=== PATIENT | male | born 1935 | race Caucasian/White ===

== ENCOUNTER 2016-11-20 15:51 | Observation (INO) | payer MEDICARE ==
[~2016-11-20] VITALS: Ht 185.4 cm; Wt 91.2 kg
[2016-11-20 15:56] VITALS: BP 169/75; PULSE 76; RESP 18; O2SAT 97
--- NOTE | 2016-11-20 16:59 | ED.REPORT ---
HPI-General Illness Date of Service Nov 20, 2016 ED Provider: Joanna Polanco MD An 81 year old male with a history of baseline left leg and left foot numbness and weakness presents to the ED via EMS complaining of sudden weakness in both legs at 1530 today when getting out from a car. No pain. Patient had acute numbness on bottom of right foot with associated weakness. Numbness had essentially resolved upon arrival in the ER and weakness lasted for 2 hours but has since diminished and he is now symptom free. He can walk, but it feels strange. He denies any weakness in any other parts of his body and denies any pain. It was the first time this morning that he did his regular walking exercise without let leg feeling heavy. 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 Nayan العلي Past Medical History Neuralgia on left side. 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 Baseline numbness in left foot and left leg, post PADMINI Seen 10/24/16 for dizziness Smoking History Never Smoker Social History Alcohol Use: "Social" Drug Use: Denies drug use Review of Systems Denies weakness in other parts of his body Full Review of Systems Musculoskeletal: Denies: Extremity pain (Denies any pain ) Neurologic: Reports: Numbness (feet ), Weakness (legs), Denies: Problem walking Complete sys rev & neg: except as marked. Physical Exam Vital Signs Vital Signs Date Time Temp Pulse Resp B/P Pulse Ox O2 Delivery O2 Flow Rate FiO2 11/20/16 19:28 36.8 72 18 162/75 98 Room Air 11/20/16 17:37 72 17 162/75 98 Room Air 11/20/16 15:56 36.8 76 18 169/75 97 Room Air Initial VS: Reviewed General/Constitutional: Well-developed, Well-nourished Head / Eyes: Atraumatic ENT: Mucous membranes moist General/Constitutional: Awake, Alert Patient is shuffling and has unsteady gait while walking. Can lift both legs off of bed. Head / Eyes: Atraumatic, Normocephalic, PERRL, EOMI Respiratory / Chest: Atraumatic, Breath sounds NL, Breath sounds = bilat, No respiratory distress, No rales, No rhonchi, No wheezing Cardiovascular: Heart rate NL, Regular rhythm, Heart sounds NL, No gallop, No murmurs, No rubs Upper Extremities Upper Extremity / MS: Atraumatic 1+ reflexes in arms. Skin: Atraumatic, Color NL, Warm, Dry Neurologic: Oriented X3, Speech NL Reflex Abnormality: Positive: Achilles L... (0), Achilles R... (0), Biceps L... (1), Biceps R... (1), Brachioradialis L... (1), Brachioradialis R... (1), Patella L... (0), Patellar R... (0) baseline sensation in both legs. Mild decreased sensation Left side (chronic) no peristent sensory findings on Right side Psychiatric: Affect NL, Mood NL Interpretation & Diagnostics Lab Results Interpretation Result Diagram: 11/20/16 1735 11/20/16 1735 Test 11/20/16 17:12 11/20/16 17:35 Hold Urine Received (Received) White Blood Count 4.5th/mm3 (3.8-10.1) Red Blood Count 5.29mil/mm3 (4.40-5.80) Hemoglobin 15.1g/dL (13.8-17.2) Hematocrit 45.5% (41.0-50.0) Mean Corpuscular Volume 86.0fL (81-100) Mean Corpuscular Hemoglobin 28.5pg (27.0-35.0) Mean Corpuscular Hemoglobin Concent 33.2% (32.0-37.0) Red Cell Distribution Width 13.1% (12.3-15.4) Platelet Count 185bil/L (150-400) Neutrophils (%) (Auto) 62.4% (40-74) Lymphocytes (%) (Auto) 22.8% (14-46) Monocytes (%) (Auto) 10.6% (4-12) Eosinophils (%) (Auto) 2.9% (0-5) Basophils (%) (Auto) 1.1% (0-3) Sodium Level 140mEq/L (134-144) Potassium Level 4.2mEq/L (3.5-5.2) Chloride Level 103mEq/L (97-108) Carbon Dioxide Level 23mmol/L (18-29) Blood Urea Nitrogen 20mg/dL (8-27) Creatinine 0.95mg/dL (0.76-1.27) Estimat Glomerular Filtration Rate 80mL/min (>59) Glucose Level 119mg/dL (60-99) Calcium Level 9.3mg/dL (8.5-10.1) Total Bilirubin 0.5mg/dL (0.0-1.2) Aspartate Amino Transf (AST/SGOT) 20U/L (0-50) Alanine Aminotransferase (ALT/SGPT) 13U/L (0-44) Alkaline Phosphatase 64U/L (25-160) Troponin T < 0.010ug/L (0.0-0.011) Total Protein 6.9g/dL (6.4-8.4) Albumin 4.0g/dL (3.4-5.0) Hold Prince Top Tube Received (Received) ECG Interpretation ECG Interpretation: Rate is 64. Sinus rhythm. Inferior infarct, old. Time: 18:24 Interpreted by: ED physician CT Head Interpretation IMPRESSION: No acute intracranial abnormality is seen. Calcification in the upper medulla unchanged consistent with previous MR diagnosis of cavernous angioma. No acute changes in the sinuses or mastoids. Dictated by: Vikas Perkins M.D. on 11/20/2016 at 18:01 Approved by: Vikas Perkins M.D. on 11/20/2016 at 18:02 Interpretation / Wet Read by: Interpret - Radiologist Re-Eval/Medical Decision Med Decision/Clinical Course Presenting with acute onset of weakness and difficulty walking with decreased sensation on the bottom of his right foot. Resolved after about 2 hours. Most consistent with a TIA at this point. CT scan of the brain is unremarkable. Will be admitted for workup of TIA at this point. Source of Hx: Old records, EMS Time of Eval: 17:20 Re-Evaluation/Progress Note: Rcheecked patient and explained plan for MRI. Consultation #1: Call Returned at: 18:03 Note: Discussed MRI results with radiology who have no acute findings. Consultation #2: Referral / Consult Name: Denis Ross MD Consulted With: Hospitalist Call Returned at: 18:24 Forestry Instructor: Agrees with eval, Agrees with plan, Accepts admit Note: Dsicussed patient case with Dr. Ross who accept patient admit. Counseled Regarding: Diagnosis, Lab results, Need for follow-up, Need for admission Discharge & Departure Primary Impression: TIA (transient ischemic attack) Disposition: ADMITTED TO HOSPITAL Referrals: Nayan العلي MD (PCP) Scribe Attestation Portions of this note were transcribed by Kelvin Daily. I, Dr. Polanco personally performed the history, physical exam and medical decision-making; I reviewed and confirmed the accuracy of the information in the transcribed note. Signed by: Sukhdev Carson, 11/20/2016, 0924. copies to: Nayan العلي MD, Shawna L MD Nov 20, 2016 16:59 Kelvin Daily Nov 20, 2016 17:13
[2016-11-20 17:37] VITALS: BP 162/75; PULSE 72; RESP 17; O2SAT 98
[2016-11-20 17:50] LABS: BASOPHILS % (AUTO) 1.1 % (0-3); EOSINOPHILS % (AUTO) 2.9 % (0-5); MONOCYTES % (AUTO) 10.6 % (4-12); Mean Corpuscular Hemoglobin 28.5 pg (27.0-35.0); NEUTROPHILS % (AUTO) 62.4 % (40-74); Platelet Count 185 bil/L (150-400)
--- NOTE | 2016-11-20 18:03 | DRSVH ---
PROCEDURE: CT BRAIN WITHOUT CONTRAST ([id number]) INDICATIONS: Stroke TECHNIQUE: Noncontrast 4.5 mm thick angled axial sections acquired from the foramen magnum to the vertex, with c oronal reformats. COMPARISON: [facility], MR, MR BRAIN WO CON, 09/05/2015, 17:55. [facility] , CT, BRAIN W/O CONTRAST, 10/17/2008, 14:56. [facility], CT, BRAIN W/O CONTRAST, 2006, 10:39. MR, BRAIN W/CONTRAST, 07/15/2003, 13:53. FINDINGS: Image quality: Excellent. CSF spaces: Basal cisterns are patent. No extra-axial fluid collections. The ventricles are symmet lizzeth in size and shape. Brain: There is a small calcification unchanged in appearance in the upper medulla the kobe junction just to the right of midline. Previous MR showed this to be a cavernous angioma. No intracranial blee ds or masses. There is cerebral volume loss for age, with resultant ventricular and sulcal prominenc e. There are periventricular and deep white matter chronic small vessel ischemic changes. There is intracranial internal carotid artery atherosclerosis. Skull and face: Calvarium and visualized facial bones appear intact, without suspicious lesions. Sinuses: Visualized sinuses and mastoids are clear. IMPRESSION: No acute intracranial abnormality is seen. Calcification in the upper medulla unchanged consistent with previous MR diagnosis of cavernous angio ma. No acute changes in the sinuses or mastoids. Dictated by: Vikas Perkins M.D. on 11/20/2016 at 18:01 Approved by: Vikas Perkins M.D. on 11/20/2016 at 18:02
[2016-11-20 18:21] LABS: TROPONIN T < 0.010 ug/L (0.0-0.011)
[2016-11-20] MEDS ORDERED: Ondansetron 2 mg/mL 2 mL Inj IVPUSH PRN (18:40)
[2016-11-20] MEDS ORDERED: [UNRECOGNIZED DRUG - REMARK] (18:52)
[2016-11-20] MEDS: 0.9% Sodium Chloride 1,000 ML IV SCH (19:15)
[2016-11-20] MEDS ORDERED: Alum-Mag Hydrox-Simeth 30 mL Suspension PO PRN (19:55)
[2016-11-20] MEDS ORDERED: Polyethylene Glycol (PEG) 17 Gm Powder PO PRN (19:55)
--- NOTE | 2016-11-20 20:01 | NUR ---
Admit nurse note Admission assessment completed in the ER. Pt. denies complaints at present. Hearing aids are in, pt. turns them on to talk and turns them off afterwards to save batter. Glasses on. Pt. confirms no allergies and no meds. STates he has very minimal health history. Message left with Soft Top Installer Carlos Pires to fax copy of advance directives tomorrow. Report given to Braydon Doll.
[2016-11-20] MEDS ORDERED: Labetalol 5 mg/mL 4 mL Inj IVPUSH PRN (20:30)
[2016-11-20 20:45] VITALS: BP 177/84; PULSE 66; RESP 18; O2SAT 98
[2016-11-20] MEDS ORDERED: LORazepam 0.5 mg Tablet PO ONE (20:50)
--- NOTE | 2016-11-20 21:01 | PCM.HPMED ---
Subjective Date of Service Nov 20, 2016 Primary Provider: Admitting Physician: Denis Ross MD Primary Care Physician: Nayan العلي MD Attending Physician: Denis Ross MD Admit Status: From the Emergency Department Chief Complaint: Right Leg Weakness History of Present Illness: Very pleasant, unusually healthy 81yo man with hx of BPPV and stable cavernous hemangioma present to our ER via EMS for new onset of right leg weakness that had resolved by 5pm in the ER. He has chronic left leg mild numbness from an injection to the lumbar spine six months ago that relieved his back pain but left this symptom. His cavernous hemangioma is in the upper medulla and is stable on the last two MRIs and was seen to be unchanged on interpretation of the CT taken in our ER. He takes no medications or supplements but does eat a very careful version of the Mediterranean Diet with several small meals during the day. 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 Review of Systems: 14 point ROS is negative except as noted above in the HPI. Allergies Coded Allergies: No Known Allergies (Unverified , 11/20/16) Home Medications NONE PMH Cavernous Hemangioma BPPV Surgical History Appendectomy Cholecystectomy Family History Father at age 74 from [place] Mother at age 90 from [place] Social History Hx Alcohol Use: No Hx Substance Use: No Hx Tobacco Use: No Smoking Status: Never Smoker Living Arrangement: with Family Exam Vital Signs Vital Sign - Last Date Time Temp Pulse Resp B/P Pulse Ox O2 Delivery O2 Flow Rate FiO2 11/20/16 19:28 36.8 72 18 162/75 98 Room Air Exam General: Alert, Oriented X3, Cooperative, No Acute Distress Head: Normocephalic, atraumatic. External ears normal. Eyes: PERRLA, EOMI. Anicteric sclerae. Mouth: Mouth Normal, Mucous Membranes Moist/[place] Neck: Neck supple with full range of motion. Chest & Lungs: Clear to auscultation bilaterally with no crackles, wheezes, or rhonchi. Cardiovascular: Regular Rate/Rhythm, Normal S1, Normal S2, No Murmurs/Rubs/ Gallops Abdomen: Non-tender, Non-distended, No masses, Normoactive bowel tones, Soft Musculoskeletal: Normal Range of Motion Extremities: No cyanosis/clubbing/edema bilaterally Neurological: Grossly Neurologically Intact, Cranial Nerves 2-12 Intact, Normal Speech, Strength Normal / ext, Normal Gait, Sensation to light touch Intact, Cerebellar Function nl Finger-Nose, Cerebellar Function nl Heel-[place], Reflexes Normal Lab and Diagnostics Labs Laboratory Tests Test 11/20/16 17:12 11/20/16 17:35 Hold Urine Received (Received) White Blood Count 4.5th/mm3 (3.8-10.1) Red Blood Count 5.29mil/mm3 (4.40-5.80) Hemoglobin 15.1g/dL (13.8-17.2) Hematocrit 45.5% (41.0-50.0) Mean Corpuscular Volume 86.0fL (81-100) Mean Corpuscular Hemoglobin 28.5pg (27.0-35.0) Mean Corpuscular Hemoglobin Concent 33.2% (32.0-37.0) Red Cell Distribution Width 13.1% (12.3-15.4) Platelet Count 185bil/L (150-400) Neutrophils (%) (Auto) 62.4% (40-74) Lymphocytes (%) (Auto) 22.8% (14-46) Monocytes (%) (Auto) 10.6% (4-12) Eosinophils (%) (Auto) 2.9% (0-5) Basophils (%) (Auto) 1.1% (0-3) Sodium Level 140mEq/L (134-144) Potassium Level 4.2mEq/L (3.5-5.2) Chloride Level 103mEq/L (97-108) Carbon Dioxide Level 23mmol/L (18-29) Blood Urea Nitrogen 20mg/dL (8-27) Creatinine 0.95mg/dL (0.76-1.27) Estimat Glomerular Filtration Rate 80mL/min (>59) Glucose Level 119mg/dL (60-99) Calcium Level 9.3mg/dL (8.5-10.1) Total Bilirubin 0.5mg/dL (0.0-1.2) Aspartate Amino Transf (AST/SGOT) 20U/L (0-50) Alanine Aminotransferase (ALT/SGPT) 13U/L (0-44) Alkaline Phosphatase 64U/L (25-160) Troponin T < 0.010ug/L (0.0-0.011) Total Protein 6.9g/dL (6.4-8.4) Albumin 4.0g/dL (3.4-5.0) Hold Prince Top Tube Received (Received) Result Diagram: 11/20/16173411/20/161734 X-Rays, CTs and MRIs CT Head Interpretation IMPRESSION: No acute intracranial abnormality is seen. Calcification in the upper medulla unchanged consistent with previous MR diagnosis of cavernous angioma. No acute changes in the sinuses or mastoids. 12-lead ECG ECG Interpretation: Rate is 64. Sinus rhythm. Inferior infarct, old. Assessment & Plan Healthy 81yo man presenting with TIA, only symptom was right leg weakness that lasted from 1530 to 1700 today. He has history of a stable upper medulla cavernous hemangioma seen twice on MRI. He was treated for BPPV in the [facility] outpatient PT with good results in the last year. 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 1. TIA, POA, resolved. CT Brain without acute findings, affirming the presence of the cavernous hemangioma. -MRI stroke protocol tomorrow (Ativan 0.5mg ordered for claustrophobia) -[id number] tomorrow -Lipid panel ordered, hgba1c pending -Start Atorvastatin 40mg and ASA 324mg daily neuro checks q4HR remote telemeter elevated glucose, acute -no h/o diabetes -hgba1c pending Bppv, chronic, resolved -h/o -monitor for s/s BPPV vs tia PRN medications for nausea, heartburn, constipation: Ondansetron, Maalox, Senna , Miralax. General Diet Pain Evaluation: Adequate Pain Control VTE Prophylaxis: Sub-Q Heparin (Unfractionated) Resuscitation Status: DNR/DNI:Do Not Resuscitate/Intubate Limited Interventions: BiPAP, Medications and IV Fluid Attending Statement The patient was seen and examined together with house staff on 11/21/2016 and I agree with the history, exam and plan as outlined in the note above. Walter Shaw DO Nov 20, 2016 21:01 Josefina Gibson DO Nov 21, 2016 01:44
--- NOTE | 2016-11-20 23:07 | NUR ---
Arrived to floor @20:30. Oriented to room and POC on whiteboard. VS 177/84 98% on RA 66p.
[2016-11-21] MEDS: 0.9% Sodium Chloride 1,000 ML IV SCH (00:47)
[2016-11-21] MEDS: Heparin 5,000 Unit/mL Inj SUBQ SCH ×2 (00:47→08:30)
[2016-11-21 00:48] VITALS: BP 146/79; PULSE 64; RESP 18; O2SAT 97
[2016-11-21 04:02] VITALS: PULSE 57
[2016-11-21 04:59] VITALS: BP 158/80; PULSE 69; RESP 18; O2SAT 95
[2016-11-21] MEDS ORDERED: LORazepam 0.5 mg Tablet PO ONE ×2 (05:20→11:45)
[2016-11-21 08:00] VITALS: PULSE 63
--- NOTE | 2016-11-21 08:50 | PCM.DC.MED ---
Discharge Summary Date of Service Nov 21, 2016 Dates of Hospitalization Date of Hospital Admission Nov 20, 2016 at 19:39 Date of Discharge: Nov 21, 2016 Providers: Admitting Physician: Denis Ross MD Primary Care Physician: Nayan العلي MD Attending Physician: Denis Ross MD Diagnosis at Time of Discharge Diagnosis at Time of Discharge TIA w/ resolved right leg weakness eye nystagmus w/ exertion/later in the day, unable to elicit today left limb paresthesia/weakness from lumbar procedure Consultations PT - Neurological screen is unremarkable except for left Lui leg weakness likely related to prior back radiculopathy. Patient presents I with all transfers and gait > 400 ft without deficits. Balance assessment of tinetti , and Modified DGI of 07/14. REcommend D/C to home without further skilled need other than possible outpatient PT for back symptoms. Procedures XRay, CTs & MRIs Echo unable to be completed, observation status, f/u w/ PCP MRI PROCEDURE: MRI STROKE PROTOCOL ([id number]) Pre- and post-contrast brain MRI, non-contrast brain MR angiogram, pre- and postcontrast neck MR angiogram INDICATIONS: WEAKNESS,R/O CVA TECHNIQUE: Brain: Noncontrast axial T1 spin echo, axial T2 fast spin echo, sagittal and axial FLAIR, coronal T2 fast spin echo, axial gradient echo, axial diffusion and ADC through the brain. After the administration of contrast, axial 3D VIBE of the cranial vasculature and brain. Brain MRA: Non-contrast 3-D time of flight MR angiogram, with multiple maximum- intensity-projection (MIP) reformats performed. Neck MRA: Axial and sagittal TruFISP through the neck. Coronal dynamic MR angiogram during administration of contrast in the arterial and venous phases, with 3-dimenstional ttgkihf-zlkqupewg-wlixnhvbkx (MIP) reformats constructed from subtraction images. COMPARISON: [facility] [place] , CT, BRAIN W/O CONTRAST, 10/17/2008, 14: 56. [facility], MR, BRAIN W&W/O CONTRAST, 11/05/2006, 13:38. FINDINGS: Image quality: Limited by patient motion artifact. BRAIN: CSF spaces: Mild, diffuse prominence of CSF space noted. Ventricles are normal in size and shape. Basal cisterns are patent. No extra-axial fluid collections. Brain: No intracranial bleeds or mass effects. 7mm in diameter focus of mixed signal on all sequences in the right paramedian pontomedullary junction and brainstem which has imaging characteristics most compatible with a cavernous angioma is stable compared to prior MRI obtained 11/05/2006. Spicer-white matter interface is normal. Scattered punctate foci of increased T2 signal in the periventricular and subcortical white matter tracts compatible with mild chronic microvascular ischemic changes noted. Diffusion weighted images show no acute ischemic insults. Normal intravascular flow voids are present. No abnormal intracranial enhancement. Skull and face: Calvarial marrow signal is normal. Orbits appear normal. Sinuses: Sinuses and mastoids are clear. BRAIN MR ANGIOGRAM: Anterior circulation: Intracranial internal carotid arteries are normal in size and enhancement. The flow within the paired anterior cerebral arteries is normal and symmetric. The flow within the middle cerebral arteries is normal and symmetric. The anterior communicating artery is seen. No stenoses, occlusions, or aneurysms. Posterior circulation: The visualized portions of the vertebral arteries demonstrate normal caliber, and join to form a normal appearing basilar artery. The flow within the posterior cerebral arteries is normal and symmetric. No stenoses, occlusions, or aneurysms. NECK MR ANGIOGRAM: Carotids: Great vessels demonstrate a conventional anatomy as they arise from the aortic arch. The origins of the common carotid arteries appear patent. The calibers and courses of both common carotid arteries are normal. The bifurcation regions appear normal bilaterally. The internal carotid arteries demonstrate normal course and caliber. Posterior circulation: The origins of the vertebral arteries appear patent. Mild atherosclerotic irregularity noted in the origin of the left vertebral artery causes mild stenosis. More superior portions of both vertebral arteries demonstrate normal course and caliber, and join to form a normal appearing basilar artery. Miscellaneous: Subclavian arteries appear patent. Pre-contrast images through the neck show no soft tissue abnormalities. IMPRESSION: BRAIN MRI: 1. No acute intracranial disease process. 2. No areas of acute or chronic infarction. 3. Mild, diffuse volume loss. 4. Mild periventricular and subcortical white matter chronic microvascular ischemic change. 5. Small brainstem cavernous angioma stable compared to 11/05/2006. BRAIN MR ANGIOGRAM: Negative examination. NECK MR ANGIOGRAM: 1. 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 2. The internal carotid arteries are fully patent. 3. Right vertebral artery is fully patent. The estimate of stenosis included in the report of the imaging study was calculated using the NASCET method CT Head Interpretation IMPRESSION: No acute intracranial abnormality is seen. Calcification in the upper medulla unchanged consistent with previous MR diagnosis of cavernous angioma. No acute changes in the sinuses or mastoids. ECG 12 Lead ECG Interpretation: Rate is 64. Sinus rhythm. Inferior infarct, old. Brief History Very pleasant, unusually healthy 81yo man with hx of BPPV and stable cavernous hemangioma present to our ER via EMS for new onset of right leg weakness that had resolved by 5pm in the ER. He has chronic left leg mild numbness from an injection to the lumbar spine six months ago that relieved his back pain but left this symptom. His cavernous hemangioma is in the upper medulla and is stable on the last two MRIs and was seen to be unchanged on interpretation of the CT taken in our ER. He takes no medications or supplements but does eat a very careful version of the Mediterranean Diet with several small meals during the day. 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 Hospital Course Healthy 81yo man presenting with TIA, only symptom was right leg weakness that lasted from 1530 to 1700 today. He has history of a stable upper medulla cavernous hemangioma seen twice on MRI. He was treated for BPPV in the [facility] outpatient PT with good results in the last year. 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 follow up w/ PCP for the following - annual exam this time of year and for neurologist referral for nystagmus-chronic and TIA and chronic tremor intention, follow up for echo, couldn't be done today and symptoms have resolved, mildly elevated HTN, PT PRN left leg weakness chronic. lipitor and ASA are new for home TIA, POA, resolved. CT Brain without acute findings, affirming the presence of the cavernous hemangioma. -MRI stroke protocol (Ativan 0.5mg ordered for claustrophobia) -[id number] -Lipid panel LDL 98 , hgba1c -Start Atorvastatin 40mg and ASA 324mg daily neuro checks q4HR remote telemeter - no afib [employer] PT elevated glucose, acute -no h/o diabetes chronic upper extremity tremor Bppv, chronic, resolved -h/o -monitor for s/s BPPV vs tia Exam Vital Signs (Last) Date Time Temp Pulse Resp B/P Pulse Ox O2 Delivery O2 Flow Rate FiO2 11/21/16 04:59 36.6 69 18 158/80 95 Room Air Exam on RA CTAB RRR 2+ radial pulses soft nt ns + BS no edema NAD A and ox3 hearing aides symmetrical facies, no lid lag, no nystagmus CN2-12 symmetrical in tact bilateral upper and lower extremities symmetrical 4+ intact mild upper extremity dysmetria chronic Test 11/20/16 17:12 11/20/16 17:35 Hold Urine Received (Received) White Blood Count 4.5th/mm3 (3.8-10.1) Red Blood Count 5.29mil/mm3 (4.40-5.80) Hemoglobin 15.1g/dL (13.8-17.2) Hematocrit 45.5% (41.0-50.0) Mean Corpuscular Volume 86.0fL (81-100) Mean Corpuscular Hemoglobin 28.5pg (27.0-35.0) Mean Corpuscular Hemoglobin Concent 33.2% (32.0-37.0) Red Cell Distribution Width 13.1% (12.3-15.4) Platelet Count 185bil/L (150-400) Neutrophils (%) (Auto) 62.4% (40-74) Lymphocytes (%) (Auto) 22.8% (14-46) Monocytes (%) (Auto) 10.6% (4-12) Eosinophils (%) (Auto) 2.9% (0-5) Basophils (%) (Auto) 1.1% (0-3) Sodium Level 140mEq/L (134-144) Potassium Level 4.2mEq/L (3.5-5.2) Chloride Level 103mEq/L (97-108) Carbon Dioxide Level 23mmol/L (18-29) Blood Urea Nitrogen 20mg/dL (8-27) Creatinine 0.95mg/dL (0.76-1.27) Estimat Glomerular Filtration Rate 80mL/min (>59) Glucose Level 119mg/dL (60-99) Calcium Level 9.3mg/dL (8.5-10.1) Total Bilirubin 0.5mg/dL (0.0-1.2) Aspartate Amino Transf (AST/SGOT) 20U/L (0-50) Alanine Aminotransferase (ALT/SGPT) 13U/L (0-44) Alkaline Phosphatase 64U/L (25-160) Troponin T < 0.010ug/L (0.0-0.011) Total Protein 6.9g/dL (6.4-8.4) Albumin 4.0g/dL (3.4-5.0) Triglycerides Level 97mg/dL (0-149) Cholesterol Level 170mg/dL (100-199) LDL Cholesterol, Calculated 98.600mg/dL (0-99) VLDL Cholesterol 19.400mg/dL HDL Cholesterol 52mg/dL (>39) Cholesterol/HDL Ratio 3.27 (0.0-4.4) Hold Prince Top Tube Received (Received) trop T neg x 1 Discharge Medications Discharge Medications Aspirin (Aspirin) 81 Mg Tablet 81 MG PO DAILY Prescribed by: DENIS ROSS MD Atorvastatin (Lipitor) 40 Mg Tablet 40 MG PO DAILY Prescribed by: DENIS ROSS MD Miscellaneous Medications ([No Meds Homicide Squad Commanding Officer]) (Reported) PT NOT TAKING ANY MEDICATIONS SERVICE PARTS COORDINATOR Denis Ross MD Nov 21, 2016 08:50
[2016-11-21 09:23] VITALS: BP 158/79; PULSE 70; RESP 18; O2SAT 98
--- NOTE | 2016-11-21 10:39 | NUR ---
Case Management: JASWANT given and explained to Pt. Shayy PATE RN
--- NOTE | 2016-11-21 10:43 | NUR ---
Social Work: Initial Assessment / Readiness for d/c Data: Pt is an 81 y/o male admitted for TIA. Pt's PCP is Dr العلي, pt's insurance is [facility] [place] Medicare. EMR reviewed. Pt's readmit score is 0, low. AUXILIARY ENGINEER met with pt at bedside, role explained. PT recommending home, no PT needs. Pt states he lives at [facility] living where there are no steps and he uses no DME at baseline. Pt drives, has no hx of HH or SNF, no LTC or VA benefits, and is not a caregiver. Pt has AD/DPOA, AUXILIARY ENGINEER requested a copy for the hospital. No d/c planning needs identified at this time. AUXILIARY ENGINEER will continue to follow if needs arise. Assessment: Pt who is independent at baseline. Plan: Pt will d/c home via POV with family when medically stable, possibly today pending results of echo per MD. No d/c planning needs identified at this time. AUXILIARY ENGINEER will continue to follow if needs arise. SAMANTA Almazan Addendum: 11/21/16 at 1045 by JUANA HARP Amended: Links added.
--- NOTE | 2016-11-21 13:24 | DRSVH ---
PROCEDURE: MRI STROKE PROTOCOL ([id number]) Pre- and post-contrast brain MRI, non-contrast brain MR angiogram, pre- and postcontrast neck MR angel ogram INDICATIONS: WEAKNESS,R/O CVA TECHNIQUE: Brain: Noncontrast axial T1 spin echo, axial T2 fast spin echo, sagittal and axial FLAIR, coronal T2 fast spin echo, axial gradient echo, axial diffusion and ADC through the brain. After the administr ation of contrast, axial 3D VIBE of the cranial vasculature and brain. Brain MRA: Non-contrast 3-D time of flight MR angiogram, with multiple uubrhwh-euvfgamun-xcjdbopkff (MIP) reformats performed. Neck MRA: Axial and sagittal TruFISP through the neck. Coronal dynamic MR angiogram during administ ration of contrast in the arterial and venous phases, with 3-dimenstional jvuzrew-gdjcbvhxd-lodqgcugo n (MIP) reformats constructed from subtraction images. COMPARISON: [facility] , CT, BRAIN W/O CONTRAST, 10/17/2008, 14:56. [facility], MR, BRAIN W&W/O CONTRAST, 11/05/2006, 13:38. FINDINGS: Image quality: Limited by patient motion artifact. BRAIN: CSF spaces: Mild, diffuse prominence of CSF space noted. Ventricles are normal in size and shape. B abida cisterns are patent. No extra-axial fluid collections. Brain: No intracranial bleeds or mass effects. 7mm in diameter focus of mixed signal on all sequence s in the right paramedian pontomedullary junction and brainstem which has imaging characteristics mos t compatible with a cavernous angioma is stable compared to prior MRI obtained 11/05/2006. Spicer-white m atter interface is normal. Scattered punctate foci of increased T2 signal in the periventricular and subcortical white matter tracts compatible with mild chronic microvascular ischemic changes noted. Di ffusion weighted images show no acute ischemic insults. Normal intravascular flow voids are present. No abnormal intracranial enhancement. Skull and face: Calvarial marrow signal is normal. Orbits appear normal. Sinuses: Sinuses and mastoids are clear. BRAIN MR ANGIOGRAM: Anterior circulation: Intracranial internal carotid arteries are normal in size and enhancement. Th e flow within the paired anterior cerebral arteries is normal and symmetric. The flow within the mid dle cerebral arteries is normal and symmetric. The anterior communicating artery is seen. No stenos es, occlusions, or aneurysms. Posterior circulation: The visualized portions of the vertebral arteries demonstrate normal caliber, and join to form a normal appearing basilar artery. The flow within the posterior cerebral arteries is normal and symmetric. No stenoses, occlusions, or aneurysms. NECK MR ANGIOGRAM: Carotids: Great vessels demonstrate a conventional anatomy as they arise from the aortic arch. The origins of the common carotid arteries appear patent. The calibers and courses of both common caroti d arteries are normal. The bifurcation regions appear normal bilaterally. The internal carotid greg osvaldo demonstrate normal course and caliber. Posterior circulation: The origins of the vertebral arteries appear patent. Mild atherosclerotic irr egularity noted in the origin of the left vertebral artery causes mild stenosis. More superior portio ns of both vertebral arteries demonstrate normal course and caliber, and join to form a normal appear ing basilar artery. Miscellaneous: Subclavian arteries appear patent. Pre-contrast images through the neck show no soft tissue abnormalities. IMPRESSION: BRAIN MRI: 1. No acute intracranial disease process. 2. No areas of acute or chronic infarction. 3. Mild, diffuse volume loss. 4. Mild periventricular and subcortical white matter chronic microvascular ischemic change. 5. Small brainstem cavernous angioma stable compared to 11/05/2006. BRAIN MR ANGIOGRAM: Negative examination. NECK MR ANGIOGRAM: 1. 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 2. The internal carotid arteries are fully patent. 3. Right vertebral artery is fully patent. The estimate of stenosis included in the report of the imaging study was calculated using the NASCET method Dictated by: Akua Vargas MD, PhD on 11/21/2016 at 13:09 Approved by: Akua Vargas MD, PhD on 11/21/2016 at 13:22
[2016-11-21] MEDS ORDERED: ASPI-973 PO (14:43)
[2016-11-21] MEDS ORDERED: LIP40 PO (14:43)
[2016-11-21 14:50] VITALS: BP 156/73; PULSE 75; RESP 18; O2SAT 98
--- NOTE | 2016-11-21 15:48 | PCM.DIMED ---
Discharge Instructions Date of Service Nov 21, 2016 Dates of Hospitalization Nov 20, 2016 at 19:39 Discharge Diagnosis Discharge Diagnosis TIA w/ resolved right leg weakness eye nystagmus w/ exertion/later in the day, unable to elicit today left limb paresthesia from lumbar procedure Medication Instructions Follow up with primary care provider --for neurology referral for nystagmus/tremors/TIA admission --lipitor and aspirin 81mg per day until then --for echocardiogram order to complete TIA evaluation since unable to perform echo on Thursday before weekend --HbA1c (diabetes lab) was taken but results are not back yet - please let primary care know Diet Low fat, Low Sodium, Heart Healthy Denis Ross MD Nov 21, 2016 15:47
--- NOTE | 2016-11-21 16:08 | NUR ---
Social Work: Discharge Data: Pt is on day 1 of hospitalization. EMR reviewed. D/C orders are in. No d/c planning needs at this time. ICHTHYOLOGY TEACHER will continue to follow if needs arise. Assessment: Pt who is independent at baseline. Plan: Pt will d/c home via POV today. No d/c planning needs at this time. ICHTHYOLOGY TEACHER will continue to follow if needs arise. SAMANTA Almazan
--- NOTE | 2016-11-21 16:33 | NUR ---
Discharge All personal belongings given to patient. IV discontinued fully intact. Education provided to patient and patient's daughter in regards to s/s of CVA/TIA. Both verbalize understanding and agree to plan of care. Education also provided to patient and daughter in regards to new medications. Patient ambulated off of unit with daughter and STREET WORKER.
== END 2016-11-21 16:31 | disposition home or self-care (01) ==
LOC: SED 15:51 → MPC 19:39
PROVIDERS: ADMIT Urology; ATTEND Internal Medicine
DX: G45.9 Transient cerebral ischemic attack, unspecified (principal); R53.1 Weakness; H55.09 Other forms of nystagmus; M54.5 Low back pain; M79.2 Neuralgia and neuritis, unspecified; D18.09 Hemangioma of other sites; H81.10 Benign paroxysmal vertigo, unspecified ear; R73.9 Hyperglycemia, unspecified
CPT/HCPCS: 36415; 70450; 70549; 70553; 80053; 80061; 83036; 84484; 85025; 92610; 93005; 96360; 97161; 99285; A9585; G0378; G8978; G8979; G8980; J1644; J7030